=== PATIENT | male | born 1950 | race Caucasian/White ===

== ENCOUNTER 2016-08-26 12:33 | Emergency (ER) | payer MEDICARE, OTHER ==
--- NOTE | ~2016-08-26 | CR72 ---
[facility] A Service of [facility] & [facility] RADIOLOGY TEXT RESULTS PATIENT: BELIA SIERRA LOCATION: [facility] : 50 UNIT #: [id number] AGE: [address]: Kush Jimenez MD SEX: M ORDER DR: [id number] [facility] [address] [place], [place] [address] [id number] MR#: [id number] Acc #: [id number] NAME: BELIA SIERRA : 1950 SEX: M STUDY DATE/TIME: 08/26/2016 12:18 UNIT: LAURA ROOM: STUDY DESCRIPTION: CR Chest Single View Portable Attending Physician: Kush Jimenez M.D. Ordering Physician: Kush Jimenez M.D. Primary Care Physician: Didier Nam M.D. MEDICAL IMAGING REPORT This report is preliminary unless electronic signature is present EXAM Chest portable 08/26/2016 1218 hours HISTORY 65-year-old man complaining of shortness of air, cough and congestion for 4 days. COMPARISON 06/27/2016. FINDINGS 2 portable views were performed to include all of the lungs. The cardiac, mediastinal and hilar contours are normal. There is underlying emphysematous change. There is no definite acute pulmonary density or pleural effusion. IMPRESSION Emphysematous changes with no acute pulmonary density or pleural effusion. No pneumothorax. No appreciable change from 06/27/2016. Dictated by... Fiona Jean M.D. THIS IS AN ELECTRONICALLY VERIFIED REPORT Fiona Jean M.D. at 08/26/2016 2:28 PM MAN/noah TD: 08/26/2016 13:59 JOB #: [id number] MEDICAL IMAGING REPORT Page 1 of 1 COPY
[2016-08-26 12:27] LABS: BASOPHIL% 0.7 % (0-2.5); EOSINOPHIL# 0.2 X10e3 (0-0.7); EOSINOPHIL% 3.5 % (0.0-7.0); HEMATOCRIT 35.5 % (38.0-50.0); HEMOGLOBIN 11.2 gm/dL (13.0-16.0); LYMPHOCYTE# 1.1 X10e3 (1.0-3.5); LYMPHOCYTE% 18.4 % (17.0-45.0); MEAN CELL VOLUME 91.2 FL (83-96); MEAN CORPUSCULAR HEMOGLOBIN 28.6 PG (28-34); MEAN CORPUSCULAR HGB CONC 31.4 g/dL (30-36); MEAN PLATELET VOLUME 8.8 FL (6.5-11.5); MONOCYTE# 0.4 X10e3 (0-1.0); MONOCYTE% 7.5 % (3.0-12.0); NEUTROPHIL# 4.2 X10e3 (1.5-7.1); NEUTROPHIL% 69.9 % (40-75); PLATELET COUNT 136 X10e3 (140-420); RED CELL DISTRIBUTION WIDTH 13.2 % (11.0-15.5)
[2016-08-26 12:28] LABS: DIFF IND NO
[~2016-08-26 12:33] MED LIST: ACETAMINOPHEN650 M1 PO; ALBUTEROL0.83 MG/ML INH; ALBUTEROL17 GM INH; ASPIRIN81 M2; ASPIRIN81 M2 PO; BUSPAR5 M1 PO; DOXYCYCLINE HY100 M3 PO; FLOMAX0.4 M1 PO; LEVOTHYROXINE50 MCG PO; LIPITOR40 MG PO; LISINOPRIL10 MG PO; MAG-OX 400400 MG PO; MEGACE ORA40 MG/ML S PO; OMEPRAZOLE20 M1 PO; OXYCODONE HCL5 M1 PO; OXYGEN; PERCOCET 5/321 UDTAB PO; PREDNISONE PO; PRINIVIL20 M1; VITAMIN D50000 UNIT PO
[2016-08-26 12:54] LABS: ALBUMIN SERUM 4.1 g/dL (3.5-5.0); BILIRUBIN, DIRECT 0.1 mg/dL (0.0-0.2); BILIRUBIN,INDIRECT 0.7 mg/dL (0.0-0.9); BILIRUBIN,TOTAL 0.8 mg/dL (0.2-2.0); BUN/CREATININE RATIO 14.66; CALCIUM SERUM 9.7 mg/dL (8.4-10.2); CREATININE SERUM 1.5 mg/dL (0.6-1.4); GLOM FILT RATE Estimated 48.2 mL/min (>60); POTASSIUM 5.2 mmol/L (3.5-5.1); PROTEIN TOTAL SERUM 6.8 g/dL (6.0-8.3)
[2016-08-26 13:51] LABS: INFLUENZA A NEG (NEG); INFLUENZA B NEG (NEG)
[2016-08-26 14:00] LABS: URINE SOURCE CLEAN CATCH
[2016-08-26 14:05] LABS: URINE APPEARANCE CLEAR; URINE BILIRUBIN NEG (NEG); URINE BLOOD NEG (NEG); URINE COLOR YELLOW; URINE GLUCOSE NEG (NEG); URINE KETONE NEG (NEG); URINE LEUKOCYTE ESTERASE NEG (NEG); URINE NITRATE NEG (NEG); URINE PH 5.5 (5-8); URINE PROTEIN NEG (NEG); URINE SPECIFIC GRAVITY 1.017 (1.003-1.035)
[2016-08-26 14:08] LABS: CULTURE INDICATED? NO
== END 2016-08-26 14:35 | disposition home or self-care (01) ==
LOC: CED 12:33
PROVIDERS: Emergency Medicine
DX: E87.5 Hyperkalemia (principal); I10 Essential (primary) hypertension; J44.9 Chronic obstructive pulmonary disease, unspecified; Z79.82 Long term (current) use of aspirin; Z79.899 Other long term (current) drug therapy
CPT/HCPCS: 36415; 71010; 80048; 80076; 81003; 85025; 87804; 94640; 96361; 96374; 99284; J2405

== ENCOUNTER 2016-09-03 12:39 | Inpatient (IN) | payer MEDICARE ==
--- NOTE | ~2016-09-03 | HP ---
Unit #: [id number] #: [id number] Patient: VINH SIERRA [id number] [address] [address] [id number] I MR#: [id number] NAME: VINH SIERRA ROOM: 339 Age: 66 Sex: M Admission Date: 09/03/2016 : 1950 Attending Physician: Linda Christianson M.D. Referring Physician: Linda Christianson M.D. Primary Care Physician: Didier Nam M.D. HISTORY AND PHYSICAL ADMISSION DIAGNOSES 1. Xrkyi-cy-kojocip respiratory failure. 2. Urinary retention. 3. Anxiety. 4. Chronic obstructive pulmonary disease. 5. Chronic kidney disease with hyperkalemia. 6. Hypertension. 7. History of coronary artery disease. 8. History of peripheral vascular disease. 9. Anemia of chronic disease. HISTORY OF PRESENT ILLNESS Mr. Vinh Sierra is a 66-year-old gentleman well known to us secondary to previous admissions, comes to the emergency room with the complaint of shortness of air and difficulty breathing along with some difficulty of urination. He is a pretty poor historian. Otherwise denies any chest pain, denies any headache, denies any fever, chills, nausea, vomiting, diarrhea, or abdominal pain. REVIEW OF SYSTEMS Twelve-point review of systems on this patient is basically negative except as above. PAST MEDICAL HISTORY Significant for: 1. History of coronary artery disease. 2. Peripheral vascular disease. 3. Aortic aneurysm. 4. Hypothyroidism. 5. Chronic respiratory failure. 6. Dyslipidemia. 7. Hypertension. PAST SURGICAL HISTORY Significant for: 1. Abdominal aortic aneurysm repair. 2. ORIF secondary to hip fracture. 3. Aorto femoral bypass. HOME MEDICATIONS I do not have them in front of me. Will clarify with the pharmacy and restart them. ALLERGIES Unit #: [id number] #: [id number] Patient: VINH SIERRA No known drug allergies. SOCIAL HISTORY He is a former smoker. No current history of tobacco, alcohol, or illicit drug use. FAMILY HISTORY Unremarkable. PHYSICAL EXAMINATION VITAL SIGNS: BP 158/74, heart rate 77, respirations 18, temperature 99.4. GENERAL: The patient is a 66-year-old gentleman in no acute distress. HEENT: Head is atraumatic. Pupils equal, round, reactive to light and accommodation. Extraocular muscles are intact. Oropharynx is clear. NECK: Supple. No mass, no JVD, no bruits. LUNGS: Diminished bilaterally. HEART: S1, S2. No murmurs. ABDOMEN: Soft, nontender, nondistended. LOWER EXTREMITIES: Without any cyanosis, clubbing, or edema. NEUROLOGIC: Patient without any new focal deficits. DIAGNOSTIC STUDIES LABORATORY: Chemistry significant for BUN 20, creatinine 1.7, potassium 5.9. Troponin less than 0.05. Coagulation panel unremarkable. Hemoglobin 10.3, hematocrit 33.5, white count 6.4. IMAGING: CT abdomen and pelvis unremarkable. No hydronephrosis. Chest x-ray no acute pulmonary disease. ASSESSMENT AND PLAN 1. Vdbzk-gx-kffxesx respiratory failure. Continue bronchodilators. Start on steroids per pulmonary. Dr. Paul to see. 2. Urinary retention status post evaluation per Nephrology. Continue Flomax. 3. Severe anxiety. Will get Dr. Soto on board. 4. COPD as above. 5. CKD with hyperkalemia, status post evaluation per Nephrology. Monitor BMP. Was given Kayexalate. 6. Hypertension, resume home medications. 7. History of coronary artery disease. Continue home medications. 8. History of peripheral vascular disease. 9. Anemia of chronic disease, stable. 10. GI and DVT prophylaxis with PPI and SCDs. Dictated by Oren Ravi/laine TD: 09/04/2016 20:41 JOB #: [id number] Unit #: [id number] #: [id number] Patient: VINH SIERRA HISTORY AND PHYSICAL Page 1 of 1 X Que Long MD HISTORY AND PHYSICAL
--- NOTE | ~2016-09-03 | DS ---
Unit #: [id number] #: [id number] Patient: BELIA SIERRA [id number] [address] [place], [place] [address] [id number] I MR#: [id number] NAME: BELIA SIERRA ROOM: 339 Age: 66 Sex: M Admission Date: 09/03/2016 : 1950 Discharge Date: 09/08/2016 Attending Physician: Linda Christianson M.D. Referring Physician: Linda Christianson M.D. Primary Care Physician: Didier Nam M.D. DISCHARGE SUMMARY FINAL DIAGNOSES 1. Acute on chronic hypoxic respiratory failure. 2. Acute exacerbation of chronic obstructive pulmonary disease. 3. Urinary retention, status post evaluation by urologist. 4. Chronic kidney disease. 5. Acute kidney injury on chronic kidney disease which is stable. 6. Hypertension. 7. Coronary artery disease. 8. Major depressive disorder and anxiety disorder. DISCHARGE MEDICATIONS 1. Mini neb treatment, continue at home q.i.d. 2. Medrol Dosepak. 3. Flomax 0.4 mg daily. 4. Tylenol 650 q.4 p.r.n. 5. Celexa 20 mg daily. 6. Doxepin 50 mg at bedtime. 7. BuSpar 5 mg twice a day. 8. Amlodipine 10 mg daily. 9. Metoprolol 25 mg twice a day. 10. Humibid LA 600 mg twice a day. 11. Lipitor 40 mg at bedtime. 12. Aspirin 81 mg daily. 13. Omeprazole 20 mg daily. 14. Discontinue lisinopril. CONSULTATION DURING HOSPITALIZATION 1. Dr. Renee Moran - Nephrology Services. 2. Dr. Gaurang Coles - Urology Services. 3. Dr. Malone - Pulmonary Services. 4. Dr. Neville Soto - Psychiatry Services. HOSPITAL COURSE Mr. Sierra is a 66-year-old male who presented to the hospital with acute on chronic respiratory failure, acute exacerbation of COPD and also unable to urinate. The patient had urinary retention, was seen by Dr. Gaurang Coles. Lin catheter was placed. IV fluids were continued. There was no hydronephrosis on the CT scan. We continued Flomax. Voiding trial was done. Next day patient is able to urinate and he is stable from that aspect. Patient may need to follow with Dr. Coles as outpatient and may need cystoscopy done as outpatient. Patient needs to follow up with Dr. Coles as outpatient. Patient's COPD exacerbation was treated by Dr. Malone. Patient received IV Unit #: [id number] #: [id number] Patient: BELIA SIERRA-Medrol mini neb treatment. The patient is being discharged home on Medrol Dose-Pete and Mucinex. The patient did have acute on chronic kidney disease. Dr. Renee Moran was consulted. GABRIEL inhibitors have been discontinued and patient is being started on Norvasc and Lopressor for blood pressure control. Patient is stable and is being discharged home. EXAMINATION ON DISCHARGE The patient is lying comfortably in bed, in no respiratory distress. He does have chronic respiratory failure, on home O2. Blood pressure is 148/68, respiratory rate 20, pulse is 72, temperature 98.4. Oxygen saturation is 94%. HEAD is normocephalic. Eye movements are normal. CHEST has decreased air entry bilaterally which is chronic. CVS - S1, S2 positive. Regular rhythm. DISCHARGE INSTRUCTIONS 1. Patient is being discharged home in stable condition. 2. Follow up with primary care provider in one week. 3. Follow up with Dr. Coles as outpatient for possible cystoscopy. 4. Blood pressure needs to be reviewed as outpatient because blood pressure medications have been adjusted. Plan of care has been discussed with patient at length. LAB WORKUP ON DISCHARGE Sodium 141 potassium 4.5, chloride 104, BUN 33, creatinine 1.5, calcium 8.2. CBC shows WBC 11.3, hemoglobin 10.0, hematocrit 31.9 and platelet count of 140. Sputum culture is 3+ normal linda. Dictated by... Oren Bartholomew TD: 09/09/2016 07:44 JOB #: [id number] DISCHARGE SUMMARY Page 1 of 1 X Linda Christianson MD X DISCHARGE SUMMARY
--- NOTE | ~2016-09-03 | CO ---
Unit #: [id number] #: [id number] Patient: BELIA SIERRA [id number] [address] [place], [place] [address] [id number] I MR#: [id number] NAME: BELIA SIERRA ROOM: 339 Age: 66 Sex: M Admission Date: 09/03/2016 : 1950 Attending Physician: Linda Christianson M.D. Primary Care Physician: Didier Nam M.D. CONSULTATION REPORT REQUESTING PHYSICIAN Consultation requested by Dr. Linda Christianson. REASON FOR CONSULTATION Urinary retention. CHIEF COMPLAINT Urinary retention. HISTORY OF PRESENT ILLNESS The patient is a 66-year-old gentleman with chronic renal insufficiency with a baseline creatinine of about 1.5 to 1.9. He presented to the emergency room yesterday with a two-day history of weakening urinary stream, pressure over the bladder, and inability to urinate. This was relieved by placement of a Lin catheter. The patient reports that a relatively small amount of urine was returned and I cannot find documentation of exactly how much this was. The patient is on Flomax at home and he is a poor historian but it sounds like he has been taking this. He underwent a noncontrasted CT of the abdomen and pelvis which shows no hydronephrosis, nonobstructing stones in the kidney and bladder decompressed by Lin catheter. His creatinine on presentation yesterday was 1.5. It went up to 1.7 later in the evening with a potassium of 5.9. He is currently being treated for this by the renal service. PAST MEDICAL HISTORY 1. Chronic renal insufficiency. 2. COPD. PAST SURGICAL HISTORY 1. Abdominal aortic aneurysm repair with aortobifemoral bypass. 2. Open reduction of left hip fracture. HOME MEDICATIONS 1. Omeprazole. 2. Tamsulosin. 3. Buspirone. 4. Atorvastatin. 5. Aspirin. 6. Lisinopril. ALLERGIES No known drug allergies. REVIEW OF SYSTEMS Unit #: [id number] #: [id number] Patient: BELIA SIERRA A 12-point review of systems was obtained. The pertinent negatives include no hematuria, no dysuria, no flank pain. Pertinent positives include dizziness, urinary hesitancy, decreased urine output. SOCIAL HISTORY Negative for alcohol or tobacco use. FAMILY HISTORY Unremarkable. PHYSICAL EXAMINATION GENERAL: Reveals a well-developed white male in no acute distress. VITAL SIGNS: Temperature 98.2, blood pressure 152/69, pulse 100, respirations 18. HEENT: Normocephalic and atraumatic. Extraocular movements are intact. NECK: Supple. There is no lymphadenopathy. There is no nuchal rigidity. RESPIRATIONS: Unlabored. He has symmetric chest rise. ABDOMEN: Soft, nontender, nondistended. GENITOURINARY: He does have paraphimosis on an uncircumcised penis. I reduced this. His Lin catheter is draining clear urine. RECTAL: Digital rectal exam reveals a normal size prostate without nodules. EXTREMITIES: Radial pulses are regular rate and rhythm. No clubbing, cyanosis, or edema. NEUROLOGIC: He is alert and oriented and moving all extremities well. DIAGNOSTIC STUDIES LABORATORY: Significant for a creatinine of 1.7, potassium 5.9. IMAGING: Noncontrasted CT scan of the abdomen and pelvis was reviewed independently. There is no hydronephrosis. Bladder is decompressed by a Lin catheter. There is small nonobstructing stones bilaterally. ASSESSMENT AND PLAN Urinary retention versus dehydration: It is unclear if this patient was truly in urinary retention or if he was making less urine. I do not know now much was obtained when his Lin catheter was placed. I will continue him on IV fluids. Although his creatinine is essentially at his baseline, he does have hyperkalemia which is being treated by the renal service. Again, I am not certain that this is obstructive uropathy as he had no hydronephrosis on his CT scan. I will continue him on his Flomax. Will do a voiding trial in one to two days and check postvoid residuals. He will need a cystoscopy later as an outpatient. This has been discussed with the patient. I appreciate the opportunity to participate in his care. Dictated by... Gaurang Coles M.D. COLE/abilio TD: 09/04/2016 12:38 JOB #: [id number] Unit #: [id number] #: [id number] Patient: BELIA SIERRA CONSULTATION REPORT Page 1 of 1 X Gaurang Coles MD CONSULTATION REPORT
--- NOTE | ~2016-09-03 | CO ---
Unit #: [id number] #: [id number] Patient: VINH SIERRA [id number] [address] [place], [place] [address] [id number] I MR#: [id number] NAME: VINH SIERRA ROOM: 339 Age: 66 Sex: M Admission Date: 09/03/2016 : 1950 Attending Physician: Linda Christianson M.D. Primary Care Physician: Didier Nam M.D. Consultation Date: 09/04/2016 CONSULTATION REPORT REASON FOR CONSULTATION Acute kidney injury. REFERRING PHYSICIAN Dr. Mick Arenas. HISTORY OF PRESENT ILLNESS This 66-year-old white male came in to the hospital complaining of difficulty urinating. He also with shortness of breath and his saturation when walking around drops to 88%. He was brought into the hospital for these reasons. His medical history is significant for severe COPD on home oxygen of 3 L, hypertension on lisinopril. Patient has been found to have abnormal renal function. His creatinine was 1.7 and potassium 5.7. He denies use of NSAIDs and has not taken Bactrim recently. PAST MEDICAL HISTORY 1. AAA repair by Dr. Muir. 2. Hypertension. 3. COPD. 4. Hiatal hernia. PAST SURGICAL HISTORY 1. AAA repair in 2013. 2. Left hip surgery. HOME MEDICATIONS 1. Lisinopril. 2. Flomax. 3. Lipitor. 4. Levothyroxine. 5. Omeprazole. 6. Vitamin D. 7. BuSpar. 8. Aspirin. 9. Magnesium. 10. Home oxygen. 11. Percocet. 12. Albuterol. 13. Doxycycline. Unit #: [id number] #: [id number] Patient: VINH SIERRA ALLERGIES No known drug allergies. FAMILY HISTORY Noncontributory. SOCIAL HISTORY He is , lives with his . 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 He quit smoking 10 years ago. REVIEW OF SYSTEMS His main issue has been difficulty with urination. He said he had feelings of needing to empty his bladder but nothing would come out. He denies burning or fever. Denies flank pain and no blood was seen in the urine but this symptom was causing him major distress and made him a little bit nauseated. He denies chest pain. He does not feel that his shortness of breath was worse over baseline. No heart palpitations. No vomiting or diarrhea. Other 13 systems reviewed unless noted are negative. PHYSICAL EXAMINATION VITAL SIGNS: His blood pressure is 121/73, heart rate is 96, temperature 98.1. He was 90% on 3 L. When he ambulated, his saturations dropped to 86%. GENERAL: This is a very pleasant white male in no acute distress, talking to me without any problem. HEENT: Extraocular muscles are intact. No eye drainage or icterus. Oropharynx is clear without lesion. NECK: Supple without JVD, thyromegaly, or carotid bruit. CHEST: Decreased breath sounds in the bases but no crackles are auscultated. CARDIAC: S1, S2. No gallop or rub. ABDOMEN: Soft, nontender, nondistended. Positive bowel sounds. No suprapubic tenderness elicited. EXTREMITIES: No cyanosis, clubbing, or edema. DIAGNOSTIC STUDIES LABORATORY: His BUN 20, creatinine 1.5, sodium 141, potassium 5.9, chloride 97, bicarbonate 34. Hemoglobin 10.5, white blood cell count 5.6, platelet count 135,000. Urinalysis shows trace leukocytes, pH 7.5, specific gravity 1.015, protein is negative, blood is negative. He has 2-5 hyaline casts. ASSESSMENT AND PLAN 1. Acute kidney injury: The etiology is unclear. He looks dry on exam. He has been on lisinopril and has had difficulty with urination. Lisinopril has been stopped. He is receiving IV fluids and urology has been consulted regarding the urinary symptoms. 2. Hyperkalemia: Lisinopril has been stopped. He will be on a low potassium diet. Additionally, a dose of Kayexalate will be given today. 3. Chronic obstructive pulmonary disease on home oxygen. He seems at baseline. Thank you very much for allowing me to see Mr. Vinh Sierra in consultation. Will follow closely with you and he will also need outpatient followup. Unit #: [id number] #: [id number] Patient: VINH SIERRA Dictated by... Renee Moran M.D. Brandt TD: 09/04/2016 17:13 JOB #: [id number] CONSULTATION REPORT Page 1 of 1 X Renee Moran MD CONSULTATION REPORT
--- NOTE | ~2016-09-03 | CO ---
Unit #: [id number] #: [id number] Patient: VINH SIERRA [id number] [address] [place], [place] [address] [id number] I MR#: [id number] NAME: VINH SIERRA ROOM: 339 Age: 66 Sex: M Admission Date: 09/03/2016 : 1950 Attending Physician: Linda Christianson M.D. Primary Care Physician: Didier Nam M.D. Consultation Date: 09/04/2016 CONSULTATION REPORT HISTORY OF PRESENT ILLNESS This very pleasant 66-year-old white male with a history of hypertension, dyslipidemia, peripheral vascular disease, felt nauseated and was having trouble urinating and came into the emergency room. In the emergency room, he was found to have acute kidney injury with a creatinine of 1.7 and a potassium of 5.9. He takes lisinopril for blood pressure. He denies flank pain or fever or gross hematuria. He did say that it was painful for him to try to urinate and that is what caused his nausea. He denies chest pain or shortness of breath. PAST MEDICAL HISTORY 1. Coronary artery disease. 2. Peripheral vascular disease. 3. Aortic aneurysm. He has seen Dr. Muir in the past. 4. Hypertension. 5. Dyslipidemia. 6. He has COPD, on home oxygen. PAST SURGICAL HISTORY Abdominal aortic aneurysm repair. MEDICATIONS Home medicines include lisinopril 10 mg daily; Flomax 0.4 mg daily; Lipitor 40 mg q.h.s.; omeprazole 20 mg daily; BuSpar 5 mg b.i.d.; aspirin 81 mg daily. SOCIAL HISTORY He is . 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 He is a former smoker and does not drink. He lives with his . ALLERGIES No known drug allergies. FAMILY HISTORY Negative for kidney disease. REVIEW OF SYSTEMS He denies dizziness, vision changes, chest pain, heart palpitations, shortness of air, abdominal pain. He did have nausea and decreased urination with difficulty passing urine and emptying his bladder. He denies swelling. PHYSICAL EXAMINATION VITAL SIGNS: His blood pressure is 158/74, heart rate is 77, temperature Unit #: [id number] #: [id number] Patient: VINH SIERRA 99.4. GENERAL: This is a very pleasant white male who is mildly anxious. He is on 3 L nasal cannula. HEENT: Extraocular muscles are intact. No eye drainage or icterus. Oropharynx is clear without lesions. NECK: Supple without JVD, thyromegaly, or carotid bruit. CHEST: Shows bilateral expiratory wheezes with no crackles. CARDIAC: S1 and S2. No gallop or rub. ABDOMEN: Soft, nontender, nondistended. Positive bowel sounds. EXTREMITIES: No cyanosis, clubbing, or edema. DIAGNOSTIC STUDIES LABORATORY RESULTS: Show BUN of 20, creatinine 1.7, potassium of 5.9, hemoglobin of 10.3. IMAGING STUDIES: CT scan of the abdomen showed the bladder is decompressed by a Lin, BPH, and nonobstructive renal calculi. ASSESSMENT AND PLAN 1. Acute kidney injury secondary to volume depletion, lisinopril, and urinary retention. Urology has been consulted and normal saline has been started to hydrate the patient. Lisinopril has been discontinued. 2. Hyperkalemia due to the lisinopril and acute kidney injury. Kayexalate 30 g p.o. will be given once and he will be hydrated. 3. Hypertension. He is mildly anxious and in pain. So, we will treat his symptoms and give him antihypertensive therapy that is not potassium sparing. 4. Chronic obstructive pulmonary disease, on home oxygen. 5. Nonobstructing kidney stones. Uric acid and phosphorus level will be checked. With his creatinine of 1.7, I recommend that he have outpatient renal followup as he has multiple risk factors for chronic kidney disease. Thank you very much for allowing me to see Vinh Sierra in consultation. Dictated by... Renee Moran M.D. TODD/keyla TD: 09/07/2016 06:09 JOB #: [id number] CONSULTATION REPORT Page 1 of 1 X Renee Moran MD X CONSULTATION REPORT
--- NOTE | ~2016-09-03 | CO ---
Unit #: [id number] #: [id number] Patient: BELIA SIERRA [id number] [facility] [address]. [place], [place] [address] [id number] MR#: [id number] NAME: BELIA SIERRA ROOM: 339 Age: 66 Sex: M Admission Date: 09/03/2016 : 1950 Attending Physician: Linda Christianson M.D. Primary Care Physician: Didier Nam M.D. Consultation Date: 09/05/2016 CONSULTATION REPORT REASON FOR CONSULTATION Depression, anxiety. HISTORY OF PRESENT ILLNESS Mr. Wood is a 66-year-old white male, seen in room 339, bed 1 on 09/05/2016 at [facility]. The patient was admitted on 09/03/2016 with unable to urinate. The patient reported having problem with depression, severe anxiety, agitation, irritability. The patient's vital signs; temperature 98.3, pulse 70, respiratory rate 19, blood pressure 159/70, oxygen saturation 96%. The patient is currently on Solu-Medrol and reported current medication is also making his anxiety worse. The patient currently denied any suicidal or homicidal ideation. Denied any psychotic symptom, but somewhat guarded. Denied any use of drugs. PAST PSYCHIATRIC HISTORY Remarkable for history of depression and anxiety. No history of any suicide attempt or any inpatient treatment. MEDICAL HISTORY Remarkable for history of acute on chronic respiratory failure, urinary retention, anxiety, COPD, chronic kidney disease with hyperkalemia, hypertension, CAD, peripheral vascular disease, anemia of chronic disease. MEDICATIONS The patient is currently on Humibid LA, Ativan p.r.n., Vistaril p.r.n., Solu-Medrol, Protonix, Lipitor, BuSpar, Lovenox, Combivent, aspirin, Flomax, lactulose. Please refer to MAR for detail. FAMILY HISTORY AND SOCIAL HISTORY The patient has a good support system. No history of abuse. The patient denied any use of drugs or alcohol. REVIEW OF SYSTEMS Complete review of systems is unremarkable except for anxiety, mood lability, jitteriness, irritability. MENTAL STATUS EXAMINATION Vital signs, please see above. General appearance; the patient dressed casually in hospital attire, seemed somewhat anxious, nervous, restless. Attention span and concentration, fair. Speech, rapid in rate. Oriented in time, place, and person. Mood and affect, labile. Thought process, circumstantial. Thought content, guarded, anxious, nervous, sad and Unit #: [id number] #: [id number] Patient: BELIA SIERRA depressed, but denied any suicidal or homicidal ideation or any psychotic symptom. Recent and remote memory, fair. Language, intact. Fund of knowledge, fair. Insight and judgment, fair to slightly impaired. DIAGNOSES Psychiatric: Major depressive disorder, recurrent, severe, F33.2; anxiety disorder, not otherwise specified, F40.01. Secondary diagnosis: Deferred. Medical diagnosis: Please refer to H and P. Stressors: Psychosocial stressors. ASSESSMENT/PLAN 1. Supportive psychotherapy and psychoeducation provided to the patient. 2. Educated about benefits and side effects of medication and course and prognosis of illness. 3. Advised to start the patient on Vistaril 25 mg t.i.d. for anxiety, doxepin 50 mg at bedtime for sleep, Celexa 20 mg at bedtime for depression, and Ativan 0.5 mg q.4 hours p.r.n. for severe anxiety. We will continue to monitor. If needed, consider further adjustment of medication. Please feel free to call if any questions, telephone #[phone]. Dictated by... Neville Soto M.D. TRISTEN/keyla TD: 09/06/2016 00:50 JOB #: [id number] CONSULTATION REPORT Page 1 of 1 X Neville Soto MD X CONSULTATION REPORT
--- NOTE | ~2016-09-03 | CO ---
Unit #: [id number] #: [id number] Patient: BELIA SIERRA [id number] [address] [place], [place] [address] [id number] I MR#: [id number] NAME: BELIA SIERRA ROOM: 339 Age: 66 Sex: M Admission Date: 09/03/2016 : 1950 Attending Physician: Linda Christianson M.D. Primary Care Physician: Didier Nam M.D. Consultation Date: 09/04/2016 CONSULTATION REPORT REASON FOR CONSULT Respiratory distress. HISTORY OF PRESENT ILLNESS This is a very pleasant 66-year-old male with past medical history significant for chronic hypoxic respiratory failure, COPD, hypertension, coronary artery disease who presented to the emergency room with respiratory distress and inability to urinate for two days. Patient stated that he has been short winded for the last few days with cough sometimes productive of yellowish sputum. He denied any fever but he had some chills and night sweats on and off sometimes. Of note, also he stated that he had no urine output for the last two days. He denied, however, any abdominal pain, discomfort, or dysuria. He stated that this never happened to him before. Patient is chronically on 2 L nasal cannula at home. PAST MEDICAL HISTORY 1. Chronic hypoxic respiratory failure. 2. COPD. 3. Peripheral vascular disease. 4. Coronary artery disease. 5. Aortic aneurysm. 6. Hypothyroidism. 7. Hyperlipidemia. 8. Hypertension. PAST SURGICAL HISTORY 1. Abdominal aortic aneurysm repair. 2. ORIF, secondary to hip fracture. 3. Aortobifemoral bypass. SOCIAL HISTORY Patient is a former smoker. He quit two to three years ago. No history of alcohol or drug abuse. He lives with his sick mother, and he has a daughter who checks on him. FAMILY HISTORY Hypertension and coronary artery disease. HOME MEDICATIONS Not available at this point. REVIEW OF SYSTEMS A 12-point review of systems was obtained and was negative except for what Unit #: [id number] #: [id number] Patient: BELIA SIERRA was mentioned in HPI. PHYSICAL EXAMINATION GENERAL: The patient is very pleasant, in no acute distress at current point. VITAL SIGNS: Blood pressure is 146/63, respiratory rate 24, O2 saturation 98% on 4 L nasal cannula. HEENT: Atraumatic, normocephalic. PERRLA. EOMI. NECK: Supple. No JVD. No lymphadenopathy. CHEST: Diminished breath sounds bilaterally with diffuse wheezing. HEART: S1, S2. No murmur, gallops, or rubs. ABDOMEN: Soft, nontender. Bowel sounds are positive. No hepatosplenomegaly. EXTREMITIES: No edema or cyanosis. SKIN: No rashes. CENTRAL NERVOUS SYSTEM: Awake, alert, oriented x3. No focal motor/sensory deficit. DIAGNOSTIC STUDIES LABORATORY: Creatinine 1.7, potassium 5.9, CO2 of 34. White blood count 6.4, hemoglobin 10.3. IMAGING: Chest x-ray did not show any acute infiltrate. ASSESSMENT 1. Acute on chronic hypoxic respiratory failure. 2. Acute exacerbation of chronic obstructive pulmonary disease. 3. Bladder retention. 4. Coronary artery disease. 5. Hypertension. 6. Ex-smoker. 7. Chronic anemia. 8. Peripheral vascular disease. PLAN 1. Patient's oxygen will be titrated down to his baseline which is 2 L nasal cannula. He is currently on 4 L. 2. Will start patient on IV steroids, bronchodilators, and mucolytics. 3. Patient may not need antibiotics. 4. Add pulmonary toilet. 5. Urology evaluation for bladder retention. 6. Deep venous thrombosis prophylaxis. Dictated by... Oren Araya TD: 09/04/2016 11:43 JOB #: [id number] Unit #: [id number] #: [id number] Patient: BELIA SIERRA CONSULTATION REPORT Page 1 of 1 X АННА FANG MD CONSULTATION REPORT
--- NOTE | ~2016-09-03 | CO ---
Unit #: [id number] #: [id number] Patient: BELIA SIERRA [id number] [facility] [address] [facility]. [place], [place] [address] [id number] I MR#: [id number] NAME: BELIA SIERRA ROOM: 339 Age: 66 Sex: M Admission Date: 09/03/2016 : 1950 Attending Physician: Linda Christianson M.D. Primary Care Physician: Didier Nam M.D. Consultation Date: 09/08/2016 CONSULTATION REPORT REASON FOR CONSULTATION Followup. DISCUSSION Mr. Justice is a 66-year-old white male seen in room 339, bed 1 on 09/08/2016 at [facility]. Patient is reporting the medication is helping him, able to sleep good, decreased anxiety and depression. Patient denied any suicidal or homicidal ideation. Denied any psychotic symptoms. Currently on Vistaril, doxepin, Celexa, Ativan p.r.n. Patient was able to sleep good. Denied any other complaints. The patient's vital signs: 97.8, 74, 20, 150/67, oxygen saturation 94%. MENTAL STATUS EXAMINATION General appearance: Patient dressed casually in hospital attire. Attention span and concentration fair. Speech regular rate, coherent. Oriented in time, place, and person. Mood and affect was sad, dysphoric but able to smile. Thought process was coherent, goal directed. Thought content: Patient denied any thoughts of harming self or others. No psychotic symptoms. Recent and remote memory fair. Language intact. Fund of knowledge fair. Insight and judgment fair to slightly impaired. DIAGNOSES PSYCHIATRIC: Major depressive disorder, recurrent, severe, F33.2. Anxiety disorder, not otherwise specified, F40.01. SECONDARY DIAGNOSIS: Deferred. MEDICAL DIAGNOSIS: Please refer to H and P. ASSESSMENT AND PLAN 1. Supportive psychotherapy and psychoeducation provided to patient. 2. Educated about benefits and side effects of medications and the course and prognosis of illness. Continue with current combination of medication. If needed, consider further adjustment of medication. Please feel free to call if any questions, . Dictated by... Neville Soto M.D. TRISTEN/abilio TD: 09/08/2016 15:28 Unit #: [id number] #: [id number] Patient: BELIA SIERRA JOB #: [id number] CONSULTATION REPORT Page 1 of 1 X Neville Soto MD CONSULTATION REPORT
--- NOTE | ~2016-09-03 | CR72 ---
[facility] A Service of [facility] RADIOLOGY TEXT RESULTS PATIENT: BELIA SIERRA LOCATION: [facility] 339-01 : 50 UNIT #: [id number] AGE: [address]: Linda Christianson MD SEX: M ORDER DR: [id number] [facility] [address] [facility]. [place], [place] [address] [id number] MR#: [id number] Acc #: [id number] NAME: BELIA SIERRA : 1950 SEX: M STUDY DATE/TIME: 09/03/2016 12:16 UNIT: [facility] ROOM: STUDY DESCRIPTION: CR Chest Single View Portable Attending Physician: Nicole Hook M.D. Ordering Physician: Nicole Hook M.D. Primary Care Physician: Didier Nam M.D. MEDICAL IMAGING REPORT This report is preliminary unless electronic signature is present EXAM Portable chest x-ray 09/03/2016 HISTORY Short of air. Today. Weakness unable to urinate asthma abdominal aortic aneurysm. FINDINGS AP radiograph of the chest is presented. Comparison 08/26/2016. Heart normal to upper limits of normal in size. Mediastinal contours normal. No indication of acute pulmonary disease, pleural effusion or pneumothorax. No suspicious nodule. Stable hyperinflation of the lungs consistent with given history of underlying asthma. No acute appearing bony abnormality. Dictated by... Beck Rosenthal M.D. THIS IS AN ELECTRONICALLY VERIFIED REPORT Beck Rosenthal M.D. at 09/04/2016 6:26 PM REESE/miller TD: 09/03/2016 13:55 JOB #: [id number] MEDICAL IMAGING REPORT Page 1 of 1 COPY
--- NOTE | ~2016-09-03 | CO ---
Unit #: [id number] #: [id number] Patient: VINH SIERRA [id number] [facility] [address]. [place], [place] [address] [id number] I MR#: [id number] NAME: VINH SIERRA ROOM: 339 Age: 66 Sex: M Admission Date: 09/03/2016 : 1950 Attending Physician: Linda Christianson M.D. Primary Care Physician: Didier Nam M.D. Consultation Date: 09/06/2016 CONSULTATION REPORT REASON FOR CONSULTATION Followup. DISCUSSION Mr. Vinh Sierra is a 66-year-old white male seen in room 339, bed one on 09/06/16 at [facility]. The patient reports medication is helping him decrease in anxiety, agitation, irritability, sleeping good, no side effects of medication. Patient dressed in hospital attire, lying comfortably in bed. Patient denied any suicidal or homicidal ideation. The patient denied any psychotic symptoms. Vital signs: 98.2, 99, 18, 185/58, oxygen saturation 91%. A complete review of systems is unremarkable. MENTAL STATUS EXAMINATION VITAL SIGNS: Please see above. GENERAL APPEARANCE: Patient dressed casually in hospital attire, lying comfortably in bed. ATTENTION SPAN AND CONCENTRATION: Fair. SPEECH: Regular rate, coherent. ORIENTATION: Time, place and person. MOOD AND AFFECT: Labile. THOUGHT PROCESS: Coherent. THOUGHT CONTENT: The patient denied any thoughts of harming self or others or any psychotic symptom. RECENT AND REMOTE MEMORY: Fair. LANGUAGE: Intact. FUND OF KNOWLEDGE: Fair. INSIGHT AND JUDGMENT: Fair to slightly impaired. DIAGNOSIS Psychiatric: 1. Major depressive disorder, recurrent, severe, F33.2. 2. Anxiety disorder, NOS, F40.01. ASSESSMENT/PLAN 1. Support psychotherapy and psychoeducation provided to patient. 2. Educated about benefits and side effects of medication and course and prognosis of illness. 3. Advised to continue with current medication and, if needed, consider further adjustment of medication. Please feel free to call if any question, telephone number [phone]. Unit #: [id number] #: [id number] Patient: VINH SIERRA Dictated by... Oren Sutherland TD: 09/10/2016 11:13 JOB #: [id number] CONSULTATION REPORT Page 1 of 1 X Neville Soto MD CONSULTATION REPORT
--- NOTE | ~2016-09-03 | CT4 ---
[facility] A Service of [facility] RADIOLOGY TEXT RESULTS PATIENT: BELIA SIERRA LOCATION: [facility] : [birth year] UNIT #: [id number] AGE: [address]: Nicole Hook MD SEX: M ORDER DR: [id number] [facility] [address] [place], [place] [address] [id number] MR#: [id number] Acc #: [id number] NAME: BELIA SIERRA : 1950 SEX: M STUDY DATE/TIME: 09/03/2016 14:56 UNIT: [facility] ROOM: STUDY DESCRIPTION: CT Abd and Pelv Wo Cont Attending Physician: Nicole Hook M.D. Ordering Physician: Nicole Hook M.D. Primary Care Physician: Didier Nam M.D. MEDICAL IMAGING REPORT This report is preliminary unless electronic signature is present 8. Croup EXAM CT abdomen and pelvis without contrast INDICATIONS Patient unable to urinate for the past [address] of the abdomen and pelvis The CT exam was performed with one or more of the following radiation dose reduction techniques: automatic exposure control, adjustment of mA and/or kV according to patient size, and iterative reconstruction. COMPARISON 06/27/2016 FINDINGS Abdomen without contrast: Emphysematous change in the lung bases. Liver, spleen, unremarkable. Small nonobstructing calculi both kidneys, measuring up to 4 mm. No hydronephrosis or radiodense ureteral calculus. Adrenal gland unremarkable. There are 2 [address] in place. Unremarkable gallbladder. The bowel loops are nondilated. There is a midline upper abdominal hernia that measures 6.6 cm and contains an uncomplicated knuckle of transverse colon. Pelvis without contrast: Bladder decompressed by Lin catheter. Prostate gland is obscured by streak artifact from left hip prosthesis. It is borderline enlarged but contains coarse calcifications. No aggressive appearing bone lesion. [facility] A Service of [facility] RADIOLOGY TEXT RESULTS PATIENT: BELIA SIERRA LOCATION: [facility] : [birth year] UNIT #: [id number] AGE: [address]: Nicole Hook MD SEX: M ORDER DR: IMPRESSION 1. Bladder is decompressed by Lin catheter. There is no hydronephrosis or obstructing ureteral calculus. 2. Borderline prostatomegaly with coarse calcifications could potentially cause outlet obstruction. 3. Nonobstructing calculi in both kidneys. 4. 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 Similar to the previous CT. 5. Other incidental findings detailed above. Dictated by... Juve Gill M.D. THIS IS AN ELECTRONICALLY VERIFIED REPORT Juve Gill M.D. at 09/03/2016 3:56 PM YAIR/kalin TD: 09/03/2016 15:28 JOB #: [id number] MEDICAL IMAGING REPORT Page 1 of 1 COPY
--- NOTE | ~2016-09-03 | EKG ---
PATIENT: BELIA SIERRA UNIT #: [id number] Ventricular Rate: 76 BPM Atrial Rate: 76 BPM P-R Interval: 136 ms QRS Duration: 82 ms Q-T Interval: 382 ms QTC Calculation(Bezet): 429 ms P Yale: 88 degrees Calculated R Yale: 108 degrees Calculated T Yale: 87 degrees Diagnosis Line: Normal sinus rhythm Diagnosis Line: Rightward axis Diagnosis Line: Pulmonary disease pattern Diagnosis Line: Abnormal ECG Diagnosis Line: When compared with ECG of 21-MAR-2016 20:49, Diagnosis Line: No significant change was found Diagnosis Line: Confirmed by ОЛЬГА MORGAN MD ([id number]) on Diagnosis Line: 09/03/2016 4:40:33 PM INTERPRETING MD: CATHY MURPHY
[2016-09-03 12:35] LABS: URINE SOURCE CLEAN CATCH
[2016-09-03 12:38] LABS: URINE APPEARANCE CLEAR; URINE BILIRUBIN NEG (NEG); URINE BLOOD NEG (NEG); URINE COLOR YELLOW; URINE GLUCOSE NEG (NEG); URINE KETONE NEG (NEG); URINE LEUKOCYTE ESTERASE TRACE (NEG); URINE NITRATE NEG (NEG); URINE PH 7.5 (5-8); URINE PROTEIN NEG (NEG); URINE SPECIFIC GRAVITY 1.015 (1.003-1.035)
[2016-09-03 12:40] LABS: URBCS1 AUWI 0-2 /[HPF] (0-2); URINE BACTERIA AUWI NEG (NEGATIVE); URINE SQUAMOUS EPITHELIAL CELL OCC /[HPF]
[2016-09-03 12:41] LABS: CULTURE INDICATED? NO
[2016-09-03 12:44] LABS: BASOPHIL# 0.1 X10e3 (0-0.3); EOSINOPHIL# 0.2 X10e3 (0-0.7); HEMATOCRIT 34.8 % (38.0-50.0); HEMOGLOBIN 10.5 gm/dL (13.0-16.0); LYMPHOCYTE# 1.4 X10e3 (1.0-3.5); LYMPHOCYTE% 24.4 % (17.0-45.0); MEAN CELL VOLUME 92.3 FL (83-96); MEAN CORPUSCULAR HEMOGLOBIN 27.9 PG (28-34); MEAN CORPUSCULAR HGB CONC 30.3 g/dL (30-36); MEAN PLATELET VOLUME 8.1 FL (6.5-11.5); MONOCYTE# 0.5 X10e3 (0-1.0); MONOCYTE% 8.3 % (3.0-12.0); NEUTROPHIL# 3.5 X10e3 (1.5-7.1); NEUTROPHIL% 62.3 % (40-75); PLATELET COUNT 135 X10e3 (140-420); RED BLOOD COUNT 3.77 X10e (3.90-5.60); RED CELL DISTRIBUTION WIDTH 13.4 % (11.0-15.5); WHITE BLOOD COUNT 5.6 X10e3 (4.0-10.5)
[2016-09-03 12:48] LABS: DIFF IND NO
[2016-09-03 12:52] LABS: INR 0.9; PROTHROMBIN TIME (PATIENT) 9.8 SECONDS (9.6-11.5)
[2016-09-03 12:58] LABS: POC - CKMB <1.0 ng/mL (0.0-7.9); POC - TROPONIN <0.05 ng/mL (<=0.05)
[2016-09-03 13:12] LABS: ALBUMIN SERUM 3.7 g/dL (3.5-5.0); BILIRUBIN, DIRECT 0.1 mg/dL (0.0-0.2); BILIRUBIN,INDIRECT 0.4 mg/dL (0.0-0.9); BILIRUBIN,TOTAL 0.5 mg/dL (0.2-2.0); BUN/CREATININE RATIO 13.33; CREATININE SERUM 1.5 mg/dL (0.6-1.4); GLOM FILT RATE Estimated 47.8 mL/min (>60); POTASSIUM 4.8 mmol/L (3.5-5.1)
[2016-09-03 14:13] LABS: POC - CKMB <1.0 ng/mL (0.0-7.9); POC - TROPONIN <0.05 ng/mL (<=0.05)
[2016-09-03 21:31] LABS: BASOPHIL% 0.4 % (0-2.5); DIFF IND NO; EOSINOPHIL% 0.6 % (0.0-7.0); HEMATOCRIT 33.5 % (38.0-50.0); HEMOGLOBIN 10.3 gm/dL (13.0-16.0); LYMPHOCYTE# 0.7 X10e3 (1.0-3.5); LYMPHOCYTE% 10.8 % (17.0-45.0); MEAN CELL VOLUME 91.4 FL (83-96); MEAN CORPUSCULAR HEMOGLOBIN 28.2 PG (28-34); MEAN CORPUSCULAR HGB CONC 30.8 g/dL (30-36); MEAN PLATELET VOLUME 9.5 FL (6.5-11.5); MONOCYTE# 0.1 X10e3 (0-1.0); MONOCYTE% 1.2 % (3.0-12.0); NEUTROPHIL# 5.6 X10e3 (1.5-7.1); PLATELET COUNT 159 X10e3 (140-420); RED BLOOD COUNT 3.67 X10e (3.90-5.60); RED CELL DISTRIBUTION WIDTH 13.8 % (11.0-15.5); WHITE BLOOD COUNT 6.4 X10e3 (4.0-10.5)
[2016-09-03 21:51] LABS: BUN/CREATININE RATIO 11.76; CALCIUM SERUM 8.8 mg/dL (8.4-10.2); CREATININE SERUM 1.7 mg/dL (0.6-1.4); GLOM FILT RATE Estimated 41.1 mL/min (>60)
[2016-09-03 21:52] LABS: POTASSIUM 5.7 mmol/L (3.5-5.1)
[2016-09-03 23:37] LABS: MAGNESIUM 2.5 mg/dL (1.6-3.0)
[2016-09-03 23:39] LABS: POTASSIUM 5.9 mmol/L (3.5-5.1)
[2016-09-04 20:19] LABS: BASOPHIL% 0.1 % (0-2.5); HEMATOCRIT 33.2 % (38.0-50.0); HEMOGLOBIN 10.3 gm/dL (13.0-16.0); LYMPHOCYTE# 0.7 X10e3 (1.0-3.5); LYMPHOCYTE% 5.5 % (17.0-45.0); MEAN CELL VOLUME 90.3 FL (83-96); MEAN CORPUSCULAR HGB CONC 30.9 g/dL (30-36); MEAN PLATELET VOLUME 8.7 FL (6.5-11.5); MONOCYTE# 0.4 X10e3 (0-1.0); MONOCYTE% 2.9 % (3.0-12.0); NEUTROPHIL# 11.7 X10e3 (1.5-7.1); NEUTROPHIL% 91.5 % (40-75); PLATELET COUNT 147 X10e3 (140-420); RED BLOOD COUNT 3.67 X10e (3.90-5.60); RED CELL DISTRIBUTION WIDTH 13.5 % (11.0-15.5)
[2016-09-04 20:20] LABS: DIFF IND NO; WHITE BLOOD COUNT 12.8 X10e3 (4.0-10.5)
[2016-09-04 20:40] LABS: ALBUMIN SERUM 3.5 g/dL (3.5-5.0); BILIRUBIN,TOTAL 0.4 mg/dL (0.2-2.0); BUN/CREATININE RATIO 15.88; CALCIUM SERUM 8.9 mg/dL (8.4-10.2); CREATININE SERUM 1.7 mg/dL (0.6-1.4); GLOM FILT RATE Estimated 41.1 mL/min (>60); POTASSIUM 5.3 mmol/L (3.5-5.1); PROTEIN TOTAL SERUM 5.8 g/dL (6.0-8.3)
[2016-09-05 07:23] LABS: BUN/CREATININE RATIO 16.47; CALCIUM SERUM 8.7 mg/dL (8.4-10.2); CREATININE SERUM 1.7 mg/dL (0.6-1.4); GLOM FILT RATE Estimated 41.1 mL/min (>60); PHOSPHOROUS 3.3 mg/dL (2.5-4.6); POTASSIUM 4.4 mmol/L (3.5-5.1); URIC ACID 4.8 mg/dL (2.6-7.2)
[2016-09-06 05:11] LABS: HEMATOCRIT 31.9 % (38.0-50.0); MEAN CELL VOLUME 89.2 FL (83-96); MEAN CORPUSCULAR HEMOGLOBIN 27.9 PG (28-34); MEAN CORPUSCULAR HGB CONC 31.3 g/dL (30-36); MEAN PLATELET VOLUME 8.9 FL (6.5-11.5); RED BLOOD COUNT 3.58 X10e (3.90-5.60); RED CELL DISTRIBUTION WIDTH 13.6 % (11.0-15.5); WHITE BLOOD COUNT 11.3 X10e3 (4.0-10.5)
[2016-09-06 05:51] LABS: BUN/CREATININE RATIO 18.66; CALCIUM SERUM 8.4 mg/dL (8.4-10.2); CREATININE SERUM 1.5 mg/dL (0.6-1.4); GLOM FILT RATE Estimated 47.8 mL/min (>60); POTASSIUM 4.2 mmol/L (3.5-5.1)
[2016-09-07 08:14] LABS: BUN/CREATININE RATIO 22.66; CALCIUM SERUM 8.4 mg/dL (8.4-10.2); CREATININE SERUM 1.5 mg/dL (0.6-1.4); GLOM FILT RATE Estimated 47.8 mL/min (>60); POTASSIUM 4.1 mmol/L (3.5-5.1)
[2016-09-08 07:00] LABS: CALCIUM SERUM 8.2 mg/dL (8.4-10.2); CREATININE SERUM 1.5 mg/dL (0.6-1.4); GLOM FILT RATE Estimated 47.8 mL/min (>60); POTASSIUM 4.5 mmol/L (3.5-5.1)
[2016-09-08] MEDS ORDERED: COMBIVENT U/D3 M1 INH (19:31)
[2016-09-08] MEDS ORDERED: ACETAMINOPHEN325 MG PO (19:33)
[2016-09-08] MEDS ORDERED: DOXEPIN HCL50 MG PO (19:34)
[2016-09-08] MEDS ORDERED: CELEXA20 MG PO (19:34)
[2016-09-08] MEDS ORDERED: NORVASC10 MG PO (19:35)
[2016-09-08] MEDS ORDERED: LOPRESSOR PO (19:36)
[2016-09-08] MEDS ORDERED: MIRALAX17 GM DOB (19:37)
[2016-09-08] MEDS ORDERED: LIPITOR40 MG PO ×2 (19:38→19:57)
[2016-09-08] MEDS ORDERED: HUMIBID-LA600 MG PO (19:38)
[2016-09-08] MEDS ORDERED: CHEWABLE ASPIRI81 MG PO (19:39)
== END 2016-09-08 21:48 | disposition home or self-care (01) | DRG 189 ==
LOC: CED 12:39 → C3A PCU 17:50
PROVIDERS: Emergency Medicine; Internal Medicine Nephrology; Physician Assistant Medical
DX: J96.21 Acute and chronic respiratory failure with hypoxia (principal); N17.9 Acute kidney failure, unspecified; F33.2 Major depressive disorder, recurrent severe without psychotic features; Z99.81 Dependence on supplemental oxygen; E86.0 Dehydration; J44.1 Chronic obstructive pulmonary disease with (acute) exacerbation; I12.9 Hypertensive chronic kidney disease with stage 1 through stage 4 chronic kidney disease, or unspecified chronic kidney disease; N18.9 Chronic kidney disease, unspecified; Z87.891 Personal history of nicotine dependence; N20.0 Calculus of kidney; R33.9 Retention of urine, unspecified; I25.10 Atherosclerotic heart disease of native coronary artery without angina pectoris; F41.9 Anxiety disorder, unspecified; E87.5 Hyperkalemia; I73.9 Peripheral vascular disease, unspecified; D63.8 Anemia in other chronic diseases classified elsewhere; E78.5 Hyperlipidemia, unspecified; E03.9 Hypothyroidism, unspecified; K59.00 Constipation, unspecified
CPT/HCPCS: 51702; 71010; 74176; 80048; 80053; 80076; 81003; 82553; 83605; 83735; 83880; 84100; 84132; 84484; 84550; 85025; 85027; 85610; 85730; 87070; 87205; 93005; 94640; 94760; 96365; 96366; 96375; 97110; 97116; 97161; 97530; 97535; 99285; G8978-GP; G8979-GP; J0456; J1650; J2920; J2930; J3475